=== PATIENT | male | born 1945 | race Caucasian/White ===

== ENCOUNTER 2018-03-21 11:56 | Day surgery (SDC) | payer MEDICARE, BC ==
[~2018-03-21 11:56] MED LIST: ALLO100 PO; HYDR-2768 PO; NEXI40CA PO; TRAZ50TA4 PO; ZOCO40TA PO
[2018-03-21] MEDS ORDERED: MONT10TA4 PO (12:21)
[2018-03-21] MEDS ORDERED: LUMI0.01 EACH EYE (12:21)
[2018-03-21] MEDS ORDERED: LISI40TA PO (12:21)
[2018-03-21] MEDS ORDERED: AMLO5TAB2 PO (12:21)
[2018-03-21] MEDS ORDERED: AZEL1SPR2 EACH NARE (12:21)
[2018-03-21] MEDS ORDERED: ALLO100T PO (12:21)
[2018-03-21] MEDS ORDERED: HYDR25TA5 PO (12:21)
[2018-03-21] MEDS ORDERED: APIX5TAB PO (12:21)
[2018-03-21] MEDS ORDERED: FLUT55AE INH (12:21)
[2018-03-21] MEDS ORDERED: REST0.05 EACH EYE (12:21)
[2018-03-21] MEDS ORDERED: SIMV20TA PO (12:21)
[2018-03-21] MEDS ORDERED: ESOM1CAP16 PO (12:21)
[2018-03-21] MEDS ORDERED: SODIUM CHLORID 0.9% 500 ML IV PRN (13:00)
[2018-03-21] MEDS ORDERED: METOPROLOL TARTRATE 25 MG TAB PO PRN (13:00)
[2018-03-21] MEDS ORDERED: POVIDONE IODINE 5% (ANTISEPSIS KIT) 4 APPLICATIONS EACH NARE PRN (13:00)
[2018-03-21] MEDS ORDERED: LACTATED RINGER'S 1000 ML IV PRN (13:00)
[2018-03-21] MEDS ORDERED: CHLORHEXIDINE GLUCONATE 2 % 1 PACK (2 CLOTHS) TOPICAL PRN (13:00)
--- NOTE | 2018-03-21 15:06 | CF ---
cc: Roni Fitzgerald MD DATE: 03/21/2018 DATE OF PROCEDURE: 03/21/2018 PROCEDURE PERFORMED: Transesophageal echo cardiogram. INDICATION FOR PROCEDURE: Rule out left atrial appendage thrombus, mitral vegetation, aortic regurgitation. CONSENT: Full informed consent was obtained for the procedure. Risks of , bleeding, perforation, aspiration, foreseen and unforeseen complications were reviewed. The patient appeared to fully instant. DESCRIPTION OF PROCEDURE: The patient was draped and prepped in usual manner. The patient was anesthetized as per the Anesthesia Department. The patient had a full VINCE performed. FINDINGS: Left atrial appendage free of thrombus. There was evidence of moderate aortic regurgitation. Aortic valve was trileaflet and thickened and calcified. The mitral valve moved normally. There was evidence of mild to moderate mitral regurgitation. There was evidence of mild tricuspid regurgitation by Doppler. LV function was normal. RV function was normal. Interatrial septum was intact. The left atrial appendage was free of thrombus. The descending aorta was visualized. There was evidence of mild plaquing, but no significant thrombosis or dissection. CONCLUSION: Mild to moderate aortic regurgitation, mild to moderate mitral regurgitation, normal LV function, mild tricuspid regurgitation. No left atrial appendage thrombus. Roni Fitzgerald MD HAJ/KD , 02:49 PM , 03:05 PM
--- NOTE | 2018-03-21 15:08 | MP ---
cc: Roni Fitzgerald MD, Dannie E MD DATE OF OPERATION: 03/21/2018 PROCEDURE PERFORMED: Cardioversion. INDICATION FOR CARDIOVERSION: AFib. CONSENT: Full informed consent was obtained prior to procedure. Risks of , bleeding, perforation, stroke, foreseen and unforeseen complications reviewed. The patient appeared to fully understand the risks. PROCEDURE IN DETAIL: The patient was anesthetized as per anesthesia. Full VINCE was performed. No left atrial appendage thrombus seen. The patient was given a single 200 joule synchronized shock, which converted him to sinus rhythm with PACs. CONCLUSION: Successful cardioversion from atrial fibrillation to sinus rhythm. Roni Fitzgerald MD HAJ/SB , 02:50 PM , 03:07 PM
--- NOTE | 2018-03-22 08:53 | EKG ---
Date Performed: 03/21/2018 Time Performed: 15:45:12 PTAGE: 73 years EKG: Sinus rhythm with 1st degree A-V block. Abnormal ECG PREVIOUS TRACING : 12/10/2010 08.16 Since the previous tracing, no significant change noted DOCTOR: Dev Hall Interpretating Date/Time 03/22/2018 08:49:10
== END 2018-03-21 16:00 | disposition home or self-care (01) ==
LOC: HDOC 11:56 → HDIC 11:57 → HDOC 16:00
PROVIDERS: ATTEND Internal Medicine Cardiovascular Disease
DX: I48.91 Unspecified atrial fibrillation (principal); I10 Essential (primary) hypertension; J44.9 Chronic obstructive pulmonary disease, unspecified; I25.10 Atherosclerotic heart disease of native coronary artery without angina pectoris; G47.30 Sleep apnea, unspecified; E78.5 Hyperlipidemia, unspecified; I26.99 Other pulmonary embolism without acute cor pulmonale; E66.9 Obesity, unspecified
CPT/HCPCS: 93005; 93312; 93320; 93325